=== PATIENT | female | born 1950 | race Caucasian/White ===

== ENCOUNTER → 2016-11-08 | Outpatient (CLI) | payer MEDICARE, BC ==
[~2016-11-08] MED LIST: ACHYD1T; ASCO100T6 PO; ASP325T PO; ASP81CT PO; ASP81TEC PO; CHOL100011 PO; CLC500CT PO; CLD600T PO; COZAAR; CRAN450T9 PO; E400C PO; FEXO-14 PO; FLAXSEED OIL; GARL400T13 PO; HYDR118S PO; LOSA100T16 PO; LOSA25TA15 PO; LVT.025T PO; MULT1TAB63 PO; NAPR220T76 PO; OMG1KC PO; PNT40TEC; PNT40TEC PO; POTA99TA15 PO
--- NOTE | 2016-11-08 19:56 | Diagnostic Imaging Report ---
Digital mammogram bilateral screening The study was compared to the prior exams of 03/25/15, 02/25/14, and 06/17/13. At this time, there are no current complaints. The current study was also evaluated with a Computer Aided Detection (CAD) system. FINDINGS: The fibroglandular tissue in both breasts is dense. This does limit the sensitivity of this exam. Overall, there does not appear to have been any significant change when compared to the prior study. No primary or secondary sign of malignancy is noted. IMPRESSION: There is no radiographic evidence for malignancy. ACR BI-RADS Category 1: Negative. Result letter will be mailed to the patient. Note: At least 10% of breast cancer is not imaged by mammography. Dictated by: Dictated on workstation # [id number]
== END ==
LOC: RAD 07:33
PROVIDERS: ATTEND Family Medicine
DX: Z12.31 Encounter for screening mammogram for malignant neoplasm of breast (principal); N60.92 Unspecified benign mammary dysplasia of left breast
CPT/HCPCS: 77067

== ENCOUNTER 2017-12-11 18:00 | Outpatient (RCR) | payer MEDICARE ==
[~2017-12-11] VITALS: Ht 157.5 cm; Wt 94.3 kg
== END 2018-03-11 | disposition home or self-care (01) ==
LOC: DSME 18:00
PROVIDERS: ATTEND Nurse Practitioner Family
DX: E11.9 Type 2 diabetes mellitus without complications (principal); E66.9 Obesity, unspecified; Z68.38 Body mass index [BMI] 38.0-38.9, adult

== ENCOUNTER → 2017-12-12 | Outpatient (CLI) | payer MEDICARE ==
--- NOTE | 2017-12-12 12:39 | Diagnostic Imaging Report ---
INDICATION: Routine screening. Comparison is made with prior study from 11/08/2016 and 03/25/2015. The current study was also evaluated with a Computer Aided Detection (CAD) system. FINDINGS: Both breasts demonstrate marked parenchymal heterogeneity and increased density, limiting the sensitivity of mammography. There are benign calcifications bilaterally. No mass or malignant-appearing microcalcifications are seen. The axillae are unremarkable. IMPRESSION: No mammographic features suspicious for malignancy are identified. ACR BI-RADS Category 2: Benign findings. Result letter will be mailed to the patient. Note: At least 10% of breast cancer is not imaged by mammography. Dictated by: Dictated on workstation # [id number]
== END ==
LOC: RAD 08:18
PROVIDERS: ATTEND Family Medicine
DX: Z12.31 Encounter for screening mammogram for malignant neoplasm of breast (principal)
CPT/HCPCS: 77067

== ENCOUNTER 2018-05-04 09:30 | Outpatient (CLI) | payer MEDICARE ==
[~2018-05-04] VITALS: Ht 160 cm; Wt 84.8 kg
[2018-05-04] MEDS ORDERED: FEXO-45 PO (09:53)
[2018-05-04] MEDS ORDERED: LOSA100T8 PO (09:53)
[2018-05-04] MEDS ORDERED: POTA99TA18 PO (09:53)
[2018-05-04] MEDS ORDERED: SERT25TA PO (09:53)
[2018-05-04] MEDS ORDERED: CYAN100071 PO (09:53)
[2018-05-04] MEDS ORDERED: MULT1TAB69 PO (09:53)
[2018-05-04] MEDS ORDERED: OMG1KC PO (09:53)
[2018-05-04] MEDS ORDERED: CELE200C PO (09:53)
[2018-05-04] MEDS ORDERED: AMLO10TA6 PO (09:53)
[2018-05-04] MEDS ORDERED: METF-397 PO (09:53)
[2018-05-04] MEDS ORDERED: METO-370 PO (09:53)
[2018-05-04] MEDS ORDERED: LEVO25TA5 PO (09:53)
[2018-05-04] MEDS ORDERED: GLYB5TAB6 PO (09:53)
== END 2018-05-04 09:56 | disposition home or self-care (01) ==
LOC: PREOP 09:30
PROVIDERS: ATTEND Surgery
DX: Z01.818 Encounter for other preprocedural examination (principal)

== ENCOUNTER 2018-05-09 08:44 | Day surgery (SDC) | payer MEDICARE ==
[~2018-05-09] VITALS: Ht 160 cm; Wt 84.8 kg
[~2018-05-09 08:44] MED LIST changes: +AMLO10TA6 PO; +CELE200C PO; +CYAN100071 PO; +FEXO-45 PO; +GLYB5TAB6 PO; +LEVO25TA5 PO; +LOSA100T8 PO; +METF-397 PO; +METO-370 PO; +MULT1TAB69 PO; +POTA99TA18 PO; +SERT25TA PO
--- OUTSIDE RECORDS SUMMARY | 2018-05-09 08:46 | XMS REPORT ---
Author Author JON TYSON [facility] Address [address] [place] [address] Care Team Providers Care Poultry Farm Supervisor Name Role Phone TYSONJON Unavailable PROBLEMS Type Condition ICD9-CM Code KSP67-DM Code Onset Dates Condition Status SNOMED Code Problem Allergic rhinitis due to pollen 477.0 Active 37551952 Problem Dysfunction of Eustachian tube 381.81 Active 23538972 Problem Acute sinusitis, unspecified 461.9 Active 62322585 Problem Cough 786.2 Active 08678546 ALLERGIES No Information ENCOUNTERS Encounter Location Date Diagnosis [place] [id number] [place] [address] [phone] Jul, Encounter for immunization Z23 [place] [id number] [place] [address] [phone] Jun, Encounter for immunization [place] [id number] [place] [address] [phone] 14 Dec, 2014 [place] [id number] [place] [address] [phone] 13 Dec, 2014 [place] [id number] [place] [address] [phone] January, [place] [id number] [place] [address] [phone] Dec, IMMUNIZATIONS Vaccine Route Administration Date Status PPSV23 (PNEUMOVAX) IM Intramuscular Jul 10, 2017 Administered SOCIAL HISTORY Never Assessed REASON FOR VISIT Immunization(s)---[place],[facility] PLAN OF CARE VITAL SIGNS MEDICATIONS Unknown Medications RESULTS No Results PROCEDURES Procedure Date Ordered Result Body Site PPSV23 (PNEUMOVAX) Jul 10, 2017 ADMN PNEUMCOC VAC NO FEE SCHED DAY Jul 10, 2017 SINGLE IMMUNIZATION ADMIN Jul 10, 2017 INSTRUCTIONS MEDICATIONS ADMINISTERED No Known Medications
--- OUTSIDE RECORDS SUMMARY | 2018-05-09 08:46 | XMS REPORT ---
Author Author TALI FRYE Organization [employer] Address Unknown Phone Unavailable Care Team Providers Care Sole Filler Name Role Phone TALI FRYE CP Unavailable Allergies No Known Allergies Problems Problem Type Condition Code Onset Dates Condition Status Problem Dysfunction of Eustachian tube 381.81 Active Problem Acute sinusitis, unspecified 461.9 Active Problem Cough 786.2 Active Problem Allergic rhinitis due to pollen 477.0 Active Assessment Encounter for immunization Z23 Active Medications No Known Medications Procedures Procedure Coding System Code Date PCV 13 CPT-4 60226 Jun 22, 2015 SINGLE IMMUNIZATION ADMIN CPT-4 61036 Jun 22, 2015 TDAP (BOOSTRIX) CPT-4 09400 Jun 22, 2015 IMMUNIZATION ADMIN, EACH ADD (please include units) CPT-4 10661 Jun 22, 2015 Results No Known Results Immunizations Vaccine Administration Date TDAP (BOOSTRIX) Jun 22, 2015 PCV 13 Jun 22, 2015 Summary Purpose [employer] Submission
--- OUTSIDE RECORDS SUMMARY | 2018-05-09 08:47 | XMS REPORT | Continuity of Care Document ---
Demographics Preferred Language Unknown Marital Status Unknown Sikhism Affiliation Unknown Race Unknown Ethnic Group Unknown Author Author [facility] [place] [facility] Address Unknown Phone Unavailable Allergies Active Description Code Type Severity Reaction Onset Reported/Identified Relationship to Patient Clinical Status Yes No Known Drug Allergies [id number] Drug Allergy Unknown N/A 08/09/2007 Medications There is no data. Problems Date Dx Coded Attending Type Code Diagnosis Diagnosed By 02/16/2010 Ot 401.9 02/16/2010 Ot 618.00 02/16/2010 Ot 625.6 05/18/2010 Ot 226 05/18/2010 Ot 275.41 05/18/2010 Ot 401.9 12/19/2012 461.9 SINUSITIS ACUTE 12/19/2012 477.0 ALLERGIC RHINITIS DUE TO POLLEN 12/19/2012 461.9 SINUSITIS ACUTE 12/19/2012 477.0 ALLERGIC RHINITIS DUE TO POLLEN 01/04/2013 381.81 EUSTACHIAN TUBE DYSFUNCTION 01/04/2013 786.2 COUGH 02/18/2014 ROMEL DUNCAN, JUAN LUIS R Ot 272.4 HYPERLIPIDEMIA NEC/NOS 02/18/2014 ROMEL DUNCAN, JUAN LUIS Goss Ot 300.00 ANXIETY STATE NOS 02/18/2014 ROMEL DUNCAN, JUAN LUIS R Ot 401.9 HYPERTENSION NOS 02/18/2014 ROMEL DUNCAN, JUAN LUIS Goss Ot 530.81 ESOPHAGEAL REFLUX 02/18/2014 ROMEL DUNCAN, JUAN LUIS Goss Ot 786.59 CHEST PAIN NEC 02/18/2014 ROMEL DUNCAN, JUAN LUIS R Ot V58.69 OTH MED,LT,CURRENT USE 02/24/2014 ALEXYS DUNCAN, GABRIELA Garza Ot 531.90 STOMACH ULCER NOS 03/25/2015 Ot 618.00 03/25/2015 Ot 625.6 03/25/2015 Ot 782.2 03/25/2015 Ot V72.63 03/25/2015 Ot V72.81 03/25/2015 Ot V74.8 03/25/2015 Ot V76.12 03/25/2015 Ot 241.0 03/25/2015 Ot 241.0 03/25/2015 Ot 241.0 03/25/2015 Ot V72.83 03/25/2015 Ot V74.8 03/25/2015 Ot 719.47 03/25/2015 Ot 729.5 03/25/2015 Ot 729.5 03/25/2015 Ot 715.36 03/25/2015 Ot 785.6 03/25/2015 Ot 722.52 03/25/2015 Ot V76.12 03/25/2015 Ot 246.2 03/25/2015 Ot V76.12 03/25/2015 Ot 250.00 03/25/2015 Ot 784.2 03/25/2015 Ot 793.80 03/25/2015 Ot 793.89 03/25/2015 Ot 250.00 03/25/2015 Ot 611.1 03/25/2015 ROMEL DUNCAN, JUAN LUIS R Ot 793.89 03/25/2015 ROMEL DUNCAN, JUAN LUIS R Ot 217 03/25/2015 ROMEL DUNCAN, JUAN LUIS R Ot 715.33 03/25/2015 ROMEL DUNCAN, JUAN LUIS R Ot 719.43 03/25/2015 ROMEL DUNCAN, JUAN LUIS R Ot 724.5 03/25/2015 ROMEL DUNCAN, JUAN LUIS R Ot 786.59 03/25/2015 ROMEL DUNCAN, JUAN LUIS R Ot 793.81 03/25/2015 ALEXYS DUNCAN, GABRIELA Garza Ot V72.84 03/25/2015 ALEXYS DUNCAN, GABRIELA Garza Ot 789.01 03/25/2015 ROMEL DUNCAN, JUAN LUIS R Ot 715.36 03/25/2015 ROMEL DUNCAN, JUAN LUIS R Ot 726.64 04/17/2015 ROMEL DUNCAN, JUAN LUIS R Ot V76.12 10/12/2015 Ot 241.0 10/12/2015 Ot V72.83 10/12/2015 Ot V74.8 10/12/2015 Ot 719.47 10/12/2015 Ot 729.5 10/12/2015 Ot 729.5 10/12/2015 Ot 715.36 10/12/2015 Ot 785.6 10/12/2015 Ot 722.52 10/12/2015 Ot V76.12 10/12/2015 Ot 246.2 10/12/2015 Ot V76.12 10/12/2015 Ot 250.00 10/12/2015 Ot 784.2 10/12/2015 Ot 793.80 10/12/2015 Ot 793.89 10/12/2015 Ot 250.00 10/12/2015 Ot 611.1 10/12/2015 ROMEL DUNCAN, JUAN LUIS R Ot 793.89 10/12/2015 ROMEL DUNCAN, JUAN LUIS R Ot 217 10/12/2015 ROMEL DUNCAN, JUAN LUIS R Ot 715.33 10/12/2015 ROMEL DUNCAN, JUAN LUIS R Ot 719.43 10/12/2015 ROMEL DUNCAN, JUAN LUIS R Ot 724.5 10/12/2015 ROMEL DUNCAN, JUAN LUIS R Ot 786.59 10/12/2015 ROMEL DUNCAN, JUAN LUIS R Ot 793.81 10/12/2015 ALEXYS DUNCAN, GABRIELA Garza Ot V72.84 10/12/2015 ALEXYS DUNCAN, GABRIELA Garza Ot 789.01 10/12/2015 ROMEL DUNCAN, JUAN LUIS R Ot 715.36 10/12/2015 ROMEL DUNCAN, JUAN LUIS R Ot 726.64 10/12/2015 ROMEL DUNCAN, JUAN LUIS R Ot V76.12 10/29/2015 ERIC DUNCAN, MARGIE Davis Ot E78.2 10/29/2015 MARGIE REYES MD Ot I10 10/29/2015 MARGIE REYES MD Ot I25.10 10/29/2015 MARGIE REYES MD Ot R09.89 11/09/2015 ERIC DUNCAN, MARGIE Davis Ot E78.2 11/09/2015 ERIC DUNCAN, MARGIE Davis Ot I10 11/09/2015 ERIC DUNCAN, MARGIE Davis Ot I25.10 11/09/2015 ERIC DUNCAN, MARGIE Davis Ot R09.89 11/25/2015 ERIC DUNCAN, MARGIE Davis Ot E78.2 11/25/2015 MARGIE REYES MD Ot I10 11/25/2015 MARGIE REYES MD Ot I25.10 11/25/2015 ERIC DUNCAN, MARGIE Davis Ot R09.89 11/25/2015 ERIC DUNCAN, MARGIE Davis Ot E78.2 11/25/2015 MARGIE REYES MD Ot I10 11/25/2015 MARGIE REYES MD Ot I25.10 11/25/2015 MARGIE REYES MD Ot R09.89 11/08/2016 Ot 246.2 CYST OF THYROID 11/08/2016 Ot V76.12 OTH SCREEN MAMMO-MALIGN NEOPLASM OF [place] 11/08/2016 Ot 250.00 DIAB [place] WO COMPL, TYPE II OR UNSPEC TY 11/08/2016 Ot 784.2 SWELLING IN HEAD NECK 11/08/2016 Ot 793.80 UNSPEC ABNORMAL MAMMOGRAM 11/08/2016 Ot 793.89 OTH (ABN) FINDINGS ON RADIOLOGICAL EXAMI 11/08/2016 Ot 250.00 DIAB [place] WO COMPL, TYPE II OR UNSPEC TY 11/08/2016 Ot 611.1 HYPERTROPHY OF BREAST 11/08/2016 JUAN LUIS URENA MD R Ot 793.89 OTH (ABN) FINDINGS ON RADIOLOGICAL EXAMI 11/08/2016 JUAN LUIS URENA MD Ot 217 BENIGN NEOPLASM BREAST 11/08/2016 JUAN LUIS URENA MD R Ot 715.33 LOC OSTEOART NOS-FOREARM 11/08/2016 JUAN LUIS URENA MD R Ot 719.43 JOINT PAIN-FOREARM 11/08/2016 JUAN LUIS URENA MD R Ot 724.5 BACKACHE NOS 11/08/2016 JUAN LUIS URENA MD R Ot 786.59 CHEST PAIN NEC 11/08/2016 JUAN LUIS URENA MD R Ot 793.81 MAMMOGRAPHIC MICROCLACIFICATION 11/08/2016 ALEXYS DUNCAN, GABRIELA Garza Ot V72.84 EXAM PRE-OPERATIVE NOS 11/08/2016 ALEXYS DUNCAN, GABRIELA Garza Ot 789.01 ABDOMINAL PAIN, RIGHT UPPER QUADRANT 11/08/2016 JUAN LUIS URENA MD R Ot 715.36 LOC OSTEOARTH NOS-L/LEG 11/08/2016 JUAN LUIS URENA MD R Ot 726.64 PATELLAR TENDINITIS 11/08/2016 JUAN LUIS URENA MD R Ot V76.12 OTH SCREEN MAMMO-MALIGN NEOPLASM OF [place] 11/08/2016 MARGIE REYES MD Ot E78.2 MIXED HYPERLIPIDEMIA 11/08/2016 MARGIE REYES MD Ot I10 ESSENTIAL (PRIMARY) HYPERTENSION 11/08/2016 MARGIE REYES MD Ot I25.10 ATHSCL HEART DISEASE OF [place] CORONARY 11/08/2016 TIGRE REYES MDHAR J Ot R09.89 OT SYMPTOMS AND SIGNS INVOLVING THE CIR 11/08/2016 JUAN LUIS URENA MD R Ot N60.92 UNSPECIFIED BENIGN MAMMARY DYSPLASIA OF 11/08/2016 JUAN LUIS URENA MD R Ot Z12.31 ENCNTR SCREEN MAMMOGRAM FOR MALIGNANT NE 11/09/2016 JUAN LUIS URENA MD R Ot N60.92 UNSPECIFIED BENIGN MAMMARY DYSPLASIA OF 11/09/2016 JUAN LUIS URENA MD R Ot Z12.31 ENCNTR SCREEN MAMMOGRAM FOR MALIGNANT NE 12/01/2016 JUAN LUIS URENA MD R Ot N60.92 UNSPECIFIED BENIGN MAMMARY DYSPLASIA OF 12/01/2016 JUAN LUIS URENA MD R Ot Z12.31 ENCNTR SCREEN MAMMOGRAM FOR MALIGNANT NE 12/05/2017 JUAN LUIS URENA MD R Ot Z12.31 ENCNTR SCREEN MAMMOGRAM FOR MALIGNANT NE 12/13/2017 JUAN LUIS URENA MD R Ot Z12.31 ENCNTR SCREEN MAMMOGRAM FOR MALIGNANT NE 01/02/2018 JUAN LUIS URENA MD R Ot Z12.31 ENCNTR SCREEN MAMMOGRAM FOR MALIGNANT NE 01/15/2018 MEMO JORDI R [employer]EROSPACE [employer] SYSTEMS Ot E11.9 TYPE 2 DIABETES MELLITUS WITHOUT COMPLIC 01/15/2018 MEMO, JORDI R [employer]S Ot E66.9 OBESITY, UNSPECIFIED 03/11/2018 MEMO, JORDI R AEROSP[employer] WARN[employer] SYSTEMS Ot E11.9 TYPE 2 DIABETES MELLITUS WITHOUT COMPLIC 03/11/2018 MEMO, JORDI R AEROSP[employer] CONTR[employer] WARN[employer] SYSTEMS Ot E66.9 OBESITY, UNSPECIFIED 03/11/2018 MEMO, JORDI R [employer] Ot Z68.38 BODY MASS INDEX (BMI) 38.0-38.9, ADULT 03/13/2018 MEMO JORDI R AEROSP[employer] CONTROL [employer] WARN[employer] SYSTEMS Ot E11.9 TYPE 2 DIABETES MELLITUS WITHOUT COMPLIC 03/13/2018 MEMO, JORDI R [employer] SYSTEMS Ot E66.9 OBESITY, UNSPECIFIED 03/13/2018 MEMO, JORDI R [employer] SYSTEMS Ot Z68.38 BODY MASS INDEX (BMI) 38.0-38.9, ADULT 03/13/2018 MEMO, JORDI R AEROSP[employer] CONTROL [employer] WARN[employer] SYSTEMS Ot E11.9 TYPE 2 DIABETES MELLITUS WITHOUT COMPLIC 03/13/2018 MEMO, JORDI R AEROSPACE CONTROL [employer] WARN[employer] SYSTEMS Ot E66.9 OBESITY, UNSPECIFIED 03/13/2018 JORDI HAMPTON APRN Ot Z68.38 BODY MASS INDEX (BMI) 38.0-38.9, ADULT Procedures Code Description [place] [address] THERAPUTIC INJ SQ/IM 01/04/2013 J1040 DEPO MEDROL 80 MG INJ 01/04/2013 Results There is no data. Encounters ACCT No. Visit Date/Time Discharge Status Pt. Type Provider Facility Loc./Unit Complaint [id number] 01/04/2013 08:53:00 Document Registration [id number] 12/19/2012 10:26:00 Document Registration [id number] 03/25/2015 14:59:14 ACT Document Registration [id number] 07/10/2017 16:00:00 07/10/2017 23:59:59 CLS Outpatient ANTONIO CHLOÉ [facility] [id number] 03/12/2018 00:10:00 03/12/2018 23:59:59 CLS Preadmit JORDI HAMPTON APRN [facility] TYPE 2 DIABETES [id number] 12/11/2017 18:00:00 03/11/2018 00:01:00 DIS Outpatient JORDI HAMPTON APRN [facility] TYPE 2 DIABETES [id number] 12/12/2017 08:18:00 12/12/2017 23:59:59 CLS Outpatient JUAN LUIS URENA MD [facility] RAD MAMMO [id number] 11/08/2016 07:33:00 11/08/2016 23:59:59 CLS Outpatient JUAN LUIS URENA MD [facility] RAD MAMMARY DYSPLASIA [id number] 10/12/2015 16:22:00 10/12/2015 23:59:59 CLS Outpatient ERIC DUNCAN, MARGIE Davis [facility] RAD CAD,CAROTID BRUIT, HYPERTENSION,HYPERLIPIDEMIA [id number] 03/25/2015 14:58:00 03/25/2015 23:59:59 CLS Outpatient JUAN LUIS URENA MD [facility] RAD ANNUAL SCREENING [id number] 05/30/2014 14:35:00 05/30/2014 23:59:59 CLS Outpatient JUAN LUIS URENA MD [facility] RAD PAINFUL L POST LAT KNEE [id number] 02/27/2014 07:12:00 02/27/2014 23:59:59 CLS Outpatient GABRIELA REARDON MD [facility] RAD EPIGASTRIC PAIN [id number] 02/25/2014 13:24:00 02/25/2014 23:59:59 CLS Outpatient JUAN LUIS URENA MD [facility] RAD 6 MO FOLLOW UP [id number] 02/24/2014 09:48:00 02/24/2014 14:00:00 DIS Outpatient GABRIELA REARDON MD [facility] SDC EPIGASTRIC PAIN; GERD [id number] 02/20/2014 07:47:00 02/20/2014 23:59:59 CLS Outpatient GABRIELA REARDON MD [facility] PREOP EPIGASTRIC PAIN; GERD [id number] 02/17/2014 14:13:00 02/18/2014 19:05:00 DIS Inpatient JUAN LUIS URENA MD [facility] CSD CHEST DISCOMFORT [id number] 02/13/2014 12:29:00 02/13/2014 23:59:59 CLS Outpatient JUAN LUIS URENA MD [facility] CARD CHEST DISCOMFORT [id number] 11/11/2013 16:21:00 11/11/2013 23:59:59 CLS Outpatient JUAN LUIS URENA MD [facility] RAD PAIN OF MID WRIST [id number] 07/01/2013 10:19:00 07/01/2013 23:59:59 CLS Outpatient JUAN LUIS URENA MD [facility] RAD ABNORMAL MAMMO [id number] 06/17/2013 14:04:00 06/17/2013 23:59:59 CLS Outpatient JUAN LUIS URENA MD [facility] RAD FOLLOW-UP [id number] 11/08/2012 13:25:00 Document Registration [id number] 04/11/2012 07:45:00 Document Registration [id number] 04/05/2012 17:03:00 Document Registration [id number] 03/30/2012 13:05:00 Document Registration [id number] 03/23/2012 07:05:00 Document Registration [id number] 03/16/2011 14:32:00 Document Registration [id number] 09/22/2010 15:18:00 Document Registration [id number] 09/10/2010 10:55:00 Document Registration [id number] 07/19/2010 14:32:00 Document Registration [id number] 07/07/2010 14:39:00 Document Registration [id number] 05/18/2010 15:50:00 Document Registration [id number] 05/17/2010 05:55:00 Document Registration [id number] 05/11/2010 15:33:00 Document Registration [id number] 05/05/2010 16:30:00 Document Registration [id number] 03/30/2010 12:30:00 Document Registration [id number] 03/22/2010 12:43:00 Document Registration [id number] 03/18/2010 13:36:00 Document Registration [id number] 02/12/2010 05:51:00 Document Registration [id number] 02/08/2010 08:37:00 Document Registration
[2018-05-09 09:05] VITALS: BP 104/70
[2018-05-09] MEDS ORDERED: MIDAZOLAM 2 MG/2 ML (VERSED) VIAL IVP ONE (09:15)
[2018-05-09] MEDS ORDERED: LIDOCAINE JELLY 2% (XYLOCAINE) 5 ML TUBE MM PRN (09:15)
[2018-05-09] MEDS ORDERED: fentaNYL INJECTION 100 MCG/2 ML AMP IVP ONE (09:15)
[2018-05-09] MEDS: NS IV 500 ML 500 ML IV PRN ×2 (09:20→10:45)
--- NOTE | 2018-05-09 10:08 | Conscious Sedation/ASA ---
Conscious Sedation Pre-Proced Time Reviewed: 10:00 ASA Class: 2 Airway Mallampati Classification: ([place] appropriate class) I. II. III, IV Lungs Heart ASA score ASA 1: a normal healthy patient ASA 2: a patient with a mild systemic disease (mid diabetes, controlled hypertension, obesity ASA 3: a patient with a severe systemic disease that limits activity (angina , COPD, prior Myocardial infarction) ASA 4: a patient with an incapacitating disease that is a constant threat to life (CHF, renal failure) ASA 5: a moribund patient not expected to survive 24 hrs. (ruptured aneurysm) ASA 6: a declared brain patient whose organs are being harvested. For emergent operations, add the letter E after the classification Grade 2 Sedation Plan: Analgesia, Amnesia, Plan communicated to team members, Discussed options with patient/fam, Discussed risks with patient/fam Note The patient is an appropriate candidate to undergo the planned procedure, sedation, and anesthesia. The patient immediately re-assessed prior to indication. STEPHANIE REMY MD May 09, 2018 10:08 am
--- NOTE | 2018-05-09 10:09 | Progress Note-Pre Operative ---
Pre-Operative Progress Note H&P Reviewed The H&P was reviewed, patient examined and no changes noted. Date Seen by Provider: May 09, 2018 Time Seen by Provider: 10:00 Date H&P Reviewed: May 09, 2018 Time H&P Reviewed: 10:00 Pre-Operative Diagnosis: screening colonoscopy STEPHANIE REMY MD May 09, 2018 10:09 am
[2018-05-09] MEDS ORDERED: HYDROcodone/APAP 5 MG/325 MG (LORTAB) TAB PO PRN (10:15)
[2018-05-09] MEDS ORDERED: morphine INJ 10 MG/ML 1ML (SYR OR VIAL) IV PRN (10:15)
[2018-05-09] MEDS ORDERED: ACETAMINOPHEN 325 MG TABLET PO PRN (10:15)
[2018-05-09] MEDS ORDERED: ONDANSETRON 4 MG/2 ML (SDV) Z0FRAN IV PRN (10:15)
[2018-05-09] MEDS ORDERED: LIDOCAINE JELLY 2% (XYLOCAINE) 5 ML TUBE ONE (10:36)
[2018-05-09] MEDS ORDERED: MIDAZOLAM 5 MG/5 ML (VERSED) VIAL ONE (10:36)
[2018-05-09] MEDS ORDERED: fentaNYL INJECTION 100 MCG/2 ML AMP ONE ×2 (10:37)
[2018-05-09] MEDS ORDERED: NS IV 500 ML 500 ML ONE (10:40)
[2018-05-09] MEDS ORDERED: MIDAZOLAM 2 MG/2 ML (VERSED) VIAL ONE (10:58)
--- NOTE | 2018-05-09 11:25 | Progress Note-Post Operative ---
Post-Operative Progess Note Surgeon (s)/Survey Supervisor (s) Surgeon STEPHANIE REMY MD Survey Supervisor: none Pre-Operative Diagnosis screening colonoscopy Post-Operative Diagnosis chronic stage 2 ext and int hemorrhoids, mild sigmoid diverticulosis. Procedure & Operative Findings Date of Procedure 05/09/18 Procedure Performed/Findings Colonoscopy. Anesthesia Type CS Estimated Blood Loss Estimated blood loss (mL): minimal Specimens/Packing Specimens Removed none STEPHANIE REMY MD May 09, 2018 11:25 am
--- NOTE | 2018-05-09 11:27 | Discharge Inst-Surgical ---
D/C Lap Instructions-JONEL Follow Up 10 years Activity as tolerated High Fiber Diet 25g or more per day Avoid Alcohol, Caffeine, Spicy [place] and Acid foods. Drink 64 fluid oz or more of fluids per day. Symptoms to Report: Fever over 101 degree F, Nausea/Vomiting If any problems/questions: Contact your physician or go to Emergency Room STEPHANIE REMY MD May 09, 2018 11:27 am
[2018-05-09 12:00] VITALS: BP 101/71
[2018-05-09 12:29] VITALS: BP 104/72
[2018-05-09 12:35] VITALS: BP 104/72
--- NOTE | 2018-05-09 17:48 | OPERATIVE REPORT ---
DATE OF SERVICE: 05/09/2018 ATTENDING PRIMARY CARE PHYSICIAN: Alex Pires MD PREOPERATIVE DIAGNOSIS: Screening colonoscopy. POSTOPERATIVE DIAGNOSES: Chronic stage II external and internal hemorrhoids, mild sigmoid diverticulosis. PROCEDURE: Colonoscopy. SURGEON: Stephanie Remy MD ANESTHESIA: Conscious sedation. ESTIMATED BLOOD LOSS: Minimal. FINDINGS: Mild chronic stage external and internal hemorrhoids, not actively edematous nor inflamed and no bleeding. Normal sphincter tone was felt and there were no palpable masses. DESCRIPTION OF PROCEDURE: The endoscope was then intubated to the anus and rectum gently insufflated. The endoscope was then advanced through the valves of Cash of the rectum with no polyps or any neoplasms identified. The endoscope was then advanced through the sigmoid colon where very mild sigmoid diverticulosis identified. The endoscope was then advanced to the remainder of the descending, transverse, ascending colon to the cecum. These segments were normal. There were no polyps or any neoplasms identified throughout the colon or rectum. The endoscope was then slowly withdrawn with taking a second look and suctioning residual air with no additional findings. The patient tolerated the procedure well. We will have her continue with medical management with a high fiber diet with at least 25 grams of fiber per day as well as at least 64 fluid ounces of water daily to promote soft stools on a daily basis. We will recommend a followup colonoscopy in 10 years. Job ID: [id number] DocumentID: [id number] Dictated Date: 05/09/2018 11:20:46 Religious Leader Date: 05/09/2018 17:47:44 Dictated By: STEPHANIE REMY MD
== END 2018-05-09 12:40 | disposition home or self-care (01) ==
LOC: ENDO 08:44
PROVIDERS: ATTEND Surgery
DX: Z12.11 Encounter for screening for malignant neoplasm of colon (principal); K57.30 Diverticulosis of large intestine without perforation or abscess without bleeding; K64.1 Second degree hemorrhoids; E11.9 Type 2 diabetes mellitus without complications; I10 Essential (primary) hypertension; I25.10 Atherosclerotic heart disease of native coronary artery without angina pectoris; Z79.84 Long term (current) use of oral hypoglycemic drugs

== ENCOUNTER → 2018-06-04 | Outpatient (CLI) | payer MEDICARE ==
[~2018-06-04] MED LIST changes: +CATHETER FLUSH 10 ML SYR IV PRN
[2018-06-04 09:20] VITALS: BP 112/72
--- NOTE | 2018-06-04 13:12 | STRESS TEST ---
DATE OF SERVICE: 06/04/2018 EXERCISE MYOVIEW STRESS TEST REPORT REFERRING PHYSICIAN: Dr. Pires. Baseline heart rate is 80, baseline blood pressure is 142/71. Baseline EKG is sinus rhythm with no ischemic changes. In summary, the patient was injected with 9.99 mCi of technetium-99 Myoview and the resting images were obtained. Then, the patient started exercising with a baseline heart rate, blood pressure and EKG mentioned above. The patient was able to exercise for a total of 4 minutes on standard Justice protocol. With peak exercise level, EKG was showing no ischemic changes. Blood pressure was 158/74. During recovery, heart rate and blood pressure returned to baseline. EKG returned to baseline. The resting and stress images were reviewed and compared in the short axis, horizontal long axis, and vertical long axis views. Review of the images showed good radiotracer uptake with no ischemia or infarction. SSS is 0, TID value 1.1. On the gated images, the left ventricle appeared to be normal size with normal contractility. Calculated ejection fraction 78%. CONCLUSION: 1. Fair exercise tolerance, a total of 4 minutes on standard Justice protocol, total of 5.8 METS achieving 90% of maximum expected heart rate. 2. Appropriate heart rate and blood pressure response to exercise returned to baseline during recovery. 3. No ischemia or infarction on SPECT images. 4. Normal left ventricular size with normal contractility. Calculated ejection fraction 78%. Job ID: [id number] DocumentID: [id number] Dictated Date: 06/04/2018 11:37:58 Photo Checker Date: 06/04/2018 13:11:20 Dictated By: MARGIE REYES MD
== END ==
LOC: CARD 07:53
PROVIDERS: ATTEND Physician Assistant
DX: I25.10 Atherosclerotic heart disease of native coronary artery without angina pectoris (principal); R07.89 Other chest pain; E78.5 Hyperlipidemia, unspecified; I10 Essential (primary) hypertension
CPT/HCPCS: 78452; 93017

== ENCOUNTER → 2018-06-22 | Outpatient (CLI) | payer MEDICARE ==
[~2018-06-22] MED LIST changes: -CATHETER FLUSH 10 ML SYR IV PRN
== END ==
LOC: RAD 10:55
PROVIDERS: ATTEND Physician Assistant
DX: I34.0 Nonrheumatic mitral (valve) insufficiency (principal); I25.10 Atherosclerotic heart disease of native coronary artery without angina pectoris; E78.2 Mixed hyperlipidemia; I10 Essential (primary) hypertension
CPT/HCPCS: 93306

== ENCOUNTER → 2019-02-08 | Outpatient (CLI) | payer MEDICARE ==
[~2019-02-08] MED LIST changes: -AMLO10TA6 PO; +AMLO10TA7 PO; +LOSA100T57 PO; -LOSA100T8 PO
--- NOTE | 2019-02-08 17:33 | Diagnostic Imaging Report ---
INDICATION: Routine screening. COMPARISON: Prior mammograms from 12/12/2017 and 11/08/2016. EXAMINATION: 2D and 3D bilateral screening mammography was performed with CAD. The current study was also evaluated with a Computer Aided Detection (CAD) system. FINDINGS: Both breasts are heterogeneously dense, limiting the sensitivity of mammography. There are benign calcifications in both breasts. No mass or malignant appearing microcalcifications are seen. The axillae are unremarkable. IMPRESSION: No mammographic features suspicious for malignancy are identified. ACR BI-RADS Category 2: Benign findings. Result letter will be mailed to the patient. Note: At least 10% of breast cancer is not imaged by mammography. Dictated by: Dictated on workstation # [id number]
== END ==
LOC: RAD 10:58
PROVIDERS: ATTEND Family Medicine
DX: Z12.31 Encounter for screening mammogram for malignant neoplasm of breast (principal)
CPT/HCPCS: 77067

== ENCOUNTER → 2021-03-25 | Outpatient (CLI) | payer MEDICARE ==
[~2021-03-25] MED LIST changes: +AMLO-251 PO; -AMLO10TA7 PO; +GLBR5T PO; -GLYB5TAB6 PO; -METO-370 PO; +METO50TA7 PO; +MULT-567 PO; -MULT1TAB69 PO
--- NOTE | 2021-03-26 10:18 | Diagnostic Imaging Report ---
Indication: 2-D and 3-D digital screening with CAD. COMPARISON: 02/2019, 12/2017 and 11/2016 FINDINGS: Heterogeneously dense parenchymal pattern limits mammographic sensitivity and shows no change from previous studies. There is no mass, spiculated lesion, architectural distortion, suspicious calcifications or evidence of neoplasm. IMPRESSION: Stable negative mammograms. BI-RADS Category 1 ACR BI-RADS Category 1: Negative. Result letter will be mailed to the patient. Note: At least 10% of breast cancer is not imaged by mammography. Dictated by: Dictated on workstation # [id number]
== END ==
LOC: RAD 11:03
PROVIDERS: ATTEND Nurse Practitioner Family
DX: Z12.31 Encounter for screening mammogram for malignant neoplasm of breast (principal)
CPT/HCPCS: 77063; 77067

== ENCOUNTER → 2022-01-18 | Outpatient (CLI) | payer MEDICARE ==
[~2022-01-18] MED LIST changes: +FEXO-338 PO; -FEXO-45 PO
--- NOTE | 2022-01-18 15:16 | Diagnostic Imaging Report ---
INDICATION: Asymptomatic postmenopausal state. Osteoporosis screening. COMPARISON: None available FINDINGS: AP Spine L2-L4: [BMD (g/cm2): 1.085] [T-Score: -1.0] [Z-Score: 0.2] [BMD Previous: NA] [BMD % Change: NA] LT Hip Neck: [BMD (g/cm2): 0.825] [T-Score: -1.5] [Z-Score: 0.0] LT Hip Total: [BMD (g/cm2):0.867] [T-Score:-1.1] [Z-Score: 0.2] [BMD Previous: NA] [BMD % Change: NA] RT Hip Neck: [BMD (g/cm2):0.869] [T-Score:-1.2] [Z-Score:0.3] RT Hip Total: [BMD (g/cm2):0.828] [T-score:-1.4] [Z-Score:-0.2] [BMD Previous:NA] [BMD % Change:NA] *Indicates significant change from prior examination based on 95% confidence level. World Health Organization criteria for BMD interpretation classify patients as Normal (T-score at or above -1.0), Osteopenic (T-score between -1.0 and -2.5) or Osteoporotic (T-score at or below -2.5). LIMITATIONS AND MODIFICATION: None. FRACTURE RISK (FRAX SCORE): The ten year probability of (%): Major Osteoporotic Fracture: [16.3] Hip Fracture: [2.8] IMPRESSION: 1. Osteopenia (Low bone mass). 2. Baseline examination. 3. See below National Osteoporosis Foundation guidelines on when to potentially initiate pharmacologic therapy. Based on the National Osteoporosis Foundation Guidelines, pharmacologic treatment should be initiated in any of the following, unless clinical conditions suggest otherwise: * Any patient with prior fragility fracture of the hip or vertebrae. A spine fracture indicates 5X risk for subsequent spine fracture and 2X risk for subsequent hip fracture. * Osteoporosis (T-score <-2.5). * Postmenopausal women and men age 50 and older with low bone mass/osteopenia (T-score between -1.0 and -2.5) by DXA and 10-year major osteoporotic fracture greater than 20% or a 10-year probability of hip fracture greater than 3%. These fracture risks are supplied above in the FRAX score, if applicable. * Clinician judgement and/or patient preferences may indicate treatment for people with 10-year fracture probabilities above or below these levels. Dictated by: Dictated on workstation # [id number]
== END ==
LOC: RAD 13:30
PROVIDERS: ATTEND Nurse Practitioner Family
DX: Z13.820 Encounter for screening for osteoporosis (principal); M85.80 Other specified disorders of bone density and structure, unspecified site; Z78.0 Asymptomatic menopausal state
CPT/HCPCS: 77080

== ENCOUNTER → 2022-03-02 | Outpatient (CLI) | payer MEDICARE ==
--- NOTE | 2022-03-02 15:05 | Diagnostic Imaging Report ---
INDICATION: Bilateral breast pain in the region of the inframammary folds bilaterally. COMPARISON: Correlation is made with prior mammograms from 03/25/2021 and 02/08/2019. TECHNIQUE: 2D and 3D bilateral diagnostic mammography was performed with CAD. FINDINGS: Both breasts show marked parenchymal heterogeneity and increased density, limiting the sensitivity of mammography. There are scattered benign calcifications. No mass or malignant-appearing microcalcifications are seen. The axillae are unremarkable. IMPRESSION: No mammographic features suspicious for malignancy are identified. Even so, sonographic interrogation of the areas of pain in the inferior right and left breast is recommended and will be performed today. ACR BI-RADS Category 0: Incomplete. (Needs additional imaging evaluation). Result letter will be mailed to the patient. Note: At least 10% of breast cancer is not imaged by mammography. Dictated by: Dictated on workstation # [id number]
--- NOTE | 2022-03-02 16:08 | Diagnostic Imaging Report ---
INDICATION: Bilateral breast pain. COMPARISON: Correlation is made with diagnostic mammogram earlier the same day. EXAMINATION: Sonographic interrogation of the areas of pain in the inferior breasts bilaterally was performed. FINDINGS: No sonographic abnormality is identified. No solid or cystic mass is detected. IMPRESSION: No sonographic abnormality is detected. ACR BI-RADS Category 1: Negative. Result letter will be mailed to the patient. Note: At least 10% of breast cancer is not imaged by mammography. Dictated by: Dictated on workstation # [id number]
== END ==
LOC: RAD 14:17
PROVIDERS: ATTEND Nurse Practitioner Family
DX: N64.4 Mastodynia (principal)
CPT/HCPCS: 76642; 77066; G0279; 77062